=== PATIENT | male | born 1950 | race Caucasian/White ===

== ENCOUNTER 2018-03-19 22:25 | Emergency (ER) | payer BC ==
[~2018-03-19] VITALS: Ht 170.2 cm; Wt 95.3 kg
[2018-03-19] MEDS ORDERED: LOSARTAN POTASS25 MG (22:44)
[2018-03-19] MEDS ORDERED: METOPROLOL SUCC25 MG (22:44)
[2018-03-19] MEDS ORDERED: ATORVASTATIN CA20 MG (22:44)
[2018-03-20] MEDS ORDERED: KEFLEX500 MG PO (06:27)
[2018-03-20] MEDS ORDERED: KETO10TA2 PO (06:27)
[2018-03-20] MEDS ORDERED: PERCOCET 5-3251 EACH PO (06:27)
[2018-03-20] MEDS ORDERED: TAMS0.4C PO (06:27)
== END 2018-03-20 06:11 | disposition home or self-care (01) ==
LOC: ER 22:25
DX: N20.1 Calculus of ureter (principal)